=== PATIENT | female | born 1955 | race Caucasian/White ===

== ENCOUNTER → 2018-11-04 | Outpatient (CLI) | payer BC ==
--- NOTE | 2018-11-04 10:45 | XR ---
EXAMINATION TYPE: XR chest 2V DATE OF EXAM: 11/04/2018 COMPARISON: 11/08/2012 HISTORY: Shortness of breath TECHNIQUE: Frontal and lateral views of the chest are obtained. FINDINGS: Scattered senescent parenchymal changes noted. Hyperinflation compatible with COPD. Increased left apical density may reflect summation shadow however I cannot exclude underlying lesion . Consider apical lordotic views and/or CT for further evaluation. Heart size is stable. Mediastinal structures are stable and grossly unremarkable. No evidence for hilar prominence. Degenerative changes dorsal spine. IMPRESSION: 1. Increased left apical density may reflect summation shadow however I cannot exclude underlying les ion. Consider apical lordotic views and/or CT for further evaluation.
== END | disposition home or self-care (01) ==
LOC: RADXRYALE 10:27
PROVIDERS: ATTEND Internal Medicine
DX: R91.8 Other nonspecific abnormal finding of lung field (principal)
CPT/HCPCS: 71046

== ENCOUNTER → 2018-11-19 | Outpatient (CLI) | payer BC ==
--- NOTE | 2018-11-19 10:21 | CT ---
EXAMINATION TYPE: CT chest w con DATE OF EXAM: 11/19/2018 COMPARISON: 11/04/2018 HISTORY: Cough CT DLP: 360 mGycm. Automated Exposure Control for Dose Reduction was Utilized. TECHNIQUE: CT scan of the thorax is performed following with IV Contrast, patient injected with 100 mL of Isovue 300. FINDINGS: LUNGS: There are extensive bullous emphysematous changes of the lungs throughout. No sizable pulmonar y nodule is seen however there is a nodular configuration of the left apical possible pleural parench ymal scarring measuring 1.6 cm on series 4 image 12 and 2.3 cm on image 13. Right apical pleural-pare nchymal thickening is less nodular and morphology. MEDIASTINUM: There are no greater than 1 cm hilar or mediastinal lymph nodes. Ascending thoracic ao rta is within normal limits of size measuring 3.3 cm as is the main pulmonary artery No pericardial e ffusion is seen. OTHER: Minimal multilevel degenerative changes of the spine are noted. IMPRESSION: Extensive underlying bullous emphysematous changes of the lungs. Biapical pleural parenchymal scarrin g is seen however there is a nodular component of the left apical possible scarring versus underlying developing pulmonary neoplasm. Consideration could be given to short-term follow-up CT in 3 months t o ensure no short-term interval growth or PET/CT.
== END | disposition home or self-care (01) ==
LOC: RADCTMAIN 09:08
PROVIDERS: ATTEND Internal Medicine
DX: J43.9 Emphysema, unspecified (principal)
CPT/HCPCS: 71260; Q9967

== ENCOUNTER → 2018-12-25 | Outpatient (CLI) | payer BC ==
--- NOTE | 2018-12-27 06:31 | PE ---
EXAMINATION TYPE: PET CT fusion skull to thigh DATE OF EXAM: 12/25/2018 COMPARISON: Chest CT November 19, 2018 HISTORY: Solitary pulmonary nodule left lung, abnormal CT. TECHNIQUE: Following the intravenous administration of 10.877 mCi of F-18 FDG, whole body images are performed from the skull base to the midthigh. Images are reviewed on the computer in the coronal, axial, and sagittal planes. Reconstructed rotating images are created on independent workstation and reviewed on the computer. A noncontrast CT is performed in conjunction with the PET scan. SCAN: Initial Scan FINDINGS: SKULL BASE AND NECK: No suspicious hypermetabolic uptake is present. CHEST, MEDIASTINUM, AND HILAR REGION: Background moderate to severe underlying emphysematous change m ost prominent in the lung apices is redemonstrated. There is mild to moderate biapical pleural/parenc hymal scarring extending posteriorly and inferiorly bilaterally similar to recent CT, these areas do not show suspicious hypermetabolic uptake on PET images. No areas of suspicious hypermetabolic uptake throughout the thorax are present. ABDOMEN AND PELVIS: No areas of suspicious hypermetabolic uptake are present. OSSEOUS STRUCTURES: No areas of suspicious hypermetabolic uptake are seen. OTHER CT: Ascending aorta measures up to 3.5 cm in diameter axial image 95. Mild to moderate calcified plaque of aorta extends into pelvic branch vessels. Patient has very little intra-abdominal fat. Diverticula in the sigmoid colon are present. There is some mild facet degenerative changes in the lower lumbar spine. IMPRESSION: No suspicious hypermetabolic uptake identified posterior lung apices at area of CT concer n, areas favored postinflammatory in etiology.
== END | disposition home or self-care (01) ==
LOC: RADPETMAIN 10:26
PROVIDERS: ATTEND Internal Medicine Critical Care Medicine
DX: R91.1 Solitary pulmonary nodule (principal)
CPT/HCPCS: 78815; A9552